=== PATIENT | female | born 1990 | race Two or more races ===

== ENCOUNTER 2019-08-21 16:53 | Emergency (ER) | payer OTHER ==
[~2019-08-21] VITALS: Ht 162.6 cm; Wt 104.3 kg
--- NOTE | 2019-08-21 17:22 | NUR ---
R SHOULDER, L ANKLE PAIN S/P FALL, 4 STEPS GOING DOWN STAIRS AROUND 1500, PT AWAKE, ALERT, -SO,B NA DNOTED, VSS, PENDING MD CHANEY
[2019-08-21] MEDS ORDERED: HYDROCODONE/APAP 5/325MG 1 EACH TABLET ONE (17:42)
[2019-08-21] MEDS ORDERED: HYDROMORPHONE INJ 0.5 MG/0.5 ML SYRINGE IV ONE (18:00)
[2019-08-21] MEDS ORDERED: HYDROCODONE/APAP 5/325MG 1 EACH TABLET PO ONE (18:00)
[2019-08-21] MEDS ORDERED: PROPOFOL 200 MG/20 ML VIAL IV ONE (18:00)
[2019-08-21] MEDS ORDERED: IV NS 0.9% 1,000 ML BAG IV ONE (18:00)
[2019-08-21] MEDS ORDERED: HYDROMORPHONE 1 MG/1 ML DISP.SYRIN ONE (18:07)
[2019-08-21] MEDS ORDERED: PROPOFOL 20 ML IV ONE (18:07)
[2019-08-21 19:00] VITALS: BP 132/78
--- NOTE | 2019-08-21 19:49 | NUR ---
Patient discharged to home in stable condition. Written and verbal after care instructions given. Patient verbalizes understanding of instruction. IV removed. Catheter intact and site benign. Pressure and 4x4 applied to site. No bleeding noted.
== END 2019-08-21 19:49 | disposition home or self-care (01) ==
LOC: ER 16:53
DX: S43.084A Other dislocation of right shoulder joint, initial encounter (principal); S93.492A Sprain of other ligament of left ankle, initial encounter; Z88.6 Allergy status to analgesic agent; W01.0XXA Fall on same level from slipping, tripping and stumbling without subsequent striking against object, initial encounter; Y93.89 Activity, other specified; Y92.89 Other specified places as the place of occurrence of the external cause; Y99.8 Other external cause status
CPT/HCPCS: 23650; 73030 ×2; 73060; 96374; 99284; J1170; J2704; J7030